=== PATIENT | female | born 1935 | race Caucasian/White ===

== ENCOUNTER 2018-05-19 08:25 | Inpatient (IN) | payer MEDICARE, OTHER ==
[~2018-05-19] VITALS: Ht 160 cm; Wt 69.9 kg
[2018-05-19] VITALS (18 sets, daily range): BP systolic 93–143; BP diastolic 43–79
[~2018-05-19 08:25] MED LIST: ASPI-1264 PO; ATEN50TA23 PO; CALC-854 PO; DOCUMENT DATE & TIME OF BETA-BLOCKER PO ONE; FISH1CAP15 PO; LACT1CAP65 PO; MULT-1085 PO; SIMV20TA5 PO; VITAMIN B-3 PO; ceFOXitin 2 GM ADDvantage bag 100 ML IV ONE; famotidine 20mg tablet PO ONE; ringers solution, lacted 1,000 ML IV SCH
[2018-05-19 10:19] LABS: BASOPHILS % (AUTO) 0.3 % (0-1); EOSINOPHILS # (AUTO) 0.1 X10'3 (0-0.9); EOSINOPHILS % (AUTO) 1.1 % (0-6); LYMPHOCYTES # (AUTO) 1.2 X10'3 (1.1-4.8); LYMPHOCYTES % (AUTO) 22.8 % (21-51); MEAN CORPUSCULAR HEMOGLOBIN 31.5 PG (27.0-31.0); MEAN CORPUSCULAR HGB CONC 33.1 % (33.0-36.5); MEAN CORPUSCULAR VOLUME 95.1 FL (78-98); MEAN PLATELET VOLUME 9.6 FL (7.4-10.4); MONOCYTES # (AUTO) 0.5 X10'3 (0-0.9); MONOCYTES % (AUTO) 8.9 % (2-12); NEUTROPHILS # (AUTO) 3.6 X10'3 (1.8-7.7); NEUTROPHILS % (AUTO) 66.9 % (42-75); PRE OP HEMATOCRIT 44.9 % (35.0-45.0); PRE OP HEMOGLOBIN 14.9 g/dL (12.0-16.0); PRE OP PLATELET COUNT 188 X10'3 (140-440); RED BLOOD COUNT 4.72 X10'6 (4.20-5.60); RED CELL DISTRIBUTION WIDTH 14.4 % (11.5-14.5)
[2018-05-19 11:03] LABS: PRE OP PROTIME 10.5 SECONDS (9.0-12.0)
[2018-05-19 11:07] LABS: ALANINE AMINOTRANSFERASE 21 U/L (12-78); ALBUMIN 3.5 G/DL (3.4-5.0); ALKALINE PHOSPHATASE 73 IU/L (46-116); ANION GAP 8 (8-16); ASPARTATE AMINO TRANSFERASE 26 U/L (10-37); BILIRUBIN,TOTAL 0.4 MG/DL (0.1-1.0); BLOOD UREA NITROGEN 9 MG/DL (7-18); BUN/CREATININE RATIO 11.3 (6.6-38.0); CALCIUM 8.6 MG/DL (8.5-10.1); CHLORIDE 105 MMOL/L (99-107); GLUCOSE 103 MG/DL (70-104); POTASSIUM 4.5 MMOL/L (3.5-5.1); SODIUM 141 MMOL/L (135-145); TOTAL CARBON DIOXIDE 28.4 MMOL/L (24-32); eGFR 69 ML/MIN
[2018-05-19] MEDS ORDERED: ringers solution, lacted 1,000 ML IV SCH (12:09)
[2018-05-19] MEDS ORDERED: morphine 4 MG/ML inj SYRINge IV PRN ×2 (12:10)
[2018-05-19] MEDS ORDERED: meperidine/PF 25mg/ml syringe IV PRN ×3 (12:10)
[2018-05-19] MEDS ORDERED: proCHLORperazine 10 MG/2 ml inj IV PRN (12:10)
[2018-05-19] MEDS ORDERED: ondansetron/PF 4mg/2ml inj IV PRN (12:10)
[2018-05-19] MEDS ORDERED: sevoflurane 250ml liquid IH ONE (12:11)
[2018-05-19] MEDS ORDERED: midazolam 2 mg/2 ml injection ONE (12:16)
[2018-05-19] MEDS ORDERED: fentaNYL /PF 50mcg/ml 5ml ampule ONE (12:16)
[2018-05-19] MEDS ORDERED: propofol inj 20 ML IV ONE (12:16)
[2018-05-19] MEDS ORDERED: rocuronium 10mg/ml inj IV ONE (12:17)
[2018-05-19] MEDS ORDERED: BUPIVAcaine/PF 2.5mg/ml (0.25%) 10ml vial ONE (12:32)
[2018-05-19] MEDS ORDERED: morphine 4 MG/ML inj SYRINge ONE (15:36)
[2018-05-19] MEDS: normal saline 1000ml 1,000 ML IV SCH (16:30)
[2018-05-19] MEDS: atorvastatin 10mg tablet PO SCH (20:54)
[2018-05-19] MEDS: HYDROcodone/acetaminophen 10/325mg tab PO PRN (20:56)
[2018-05-20] VITALS: BP 154/54
[2018-05-20] MEDS: normal saline 1000ml 1,000 ML IV SCH ×3 (02:04→21:57)
[2018-05-20] MEDS: HYDROcodone/acetaminophen 10/325mg tab PO PRN ×3 (07:01→21:57)
[2018-05-20 07:32] VITALS: BP 127/69
[2018-05-20] MEDS ORDERED: DHA PO SCH (08:00)
[2018-05-20] MEDS ORDERED: VITAMIN B3 PO SCH (08:00)
[2018-05-20] MEDS ORDERED: FISH OIL PO SCH (08:00)
[2018-05-20] MEDS ORDERED: EPA PO SCH (08:00)
[2018-05-20] MEDS: atenolol 50mg tablet PO SCH (09:20)
[2018-05-20] MEDS: multivitamins, therapeutics tablet PO SCH (09:20)
[2018-05-20] MEDS: calcium carbonate/vitamin D3 tablet PO SCH (09:20)
[2018-05-20] MEDS: lactobacillus rhamnosus 10,000 MMU CELLS/CAPSULE PO SCH (09:21)
[2018-05-20] MEDS: aspirin 325mg tablet PO SCH (09:22)
[2018-05-20 11:06] VITALS: BP 125/61
[2018-05-20 13:00] VITALS: BP 124/54
[2018-05-20 20:00] VITALS: BP 127/52
[2018-05-20] MEDS: atorvastatin 10mg tablet PO SCH (21:57)
[2018-05-21] VITALS: BP 143/61
[2018-05-21 07:14] VITALS: BP 161/59
[2018-05-21] MEDS: lactobacillus rhamnosus 10,000 MMU CELLS/CAPSULE PO SCH (07:50)
[2018-05-21] MEDS: normal saline 1000ml 1,000 ML IV SCH (07:50)
[2018-05-21] MEDS: atenolol 50mg tablet PO SCH (07:51)
[2018-05-21] MEDS: multivitamins, therapeutics tablet PO SCH (07:54)
[2018-05-21] MEDS: aspirin 325mg tablet PO SCH (07:54)
[2018-05-21] MEDS: calcium carbonate/vitamin D3 tablet PO SCH (07:54)
[2018-05-21] MEDS: HYDROcodone/acetaminophen 10/325mg tab PO PRN ×2 (08:01→19:59)
[2018-05-21 11:29] VITALS: BP 141/50
[2018-05-21] MEDS: atorvastatin 10mg tablet PO SCH (19:58)
[2018-05-21 20:00] VITALS: BP 149/63
[2018-05-21] MEDS: ondansetron/PF 4mg/2ml inj IV PRN (20:01)
[2018-05-22] VITALS: BP_SYST 150; BP_SYST 153; BP_DIAS 66; BP_DIAS 75
[2018-05-22] MEDS ORDERED: albumin (Human) 5% 250 ML IV solution IV STA (06:21)
[2018-05-22 07:00] LABS: BASOPHILS % (AUTO) 0.1 % (0-1); EOSINOPHILS # (AUTO) 0.2 X10'3 (0-0.9); EOSINOPHILS % (AUTO) 2.1 % (0-6); HEMATOCRIT 29.7 % (35.0-45.0); HEMOGLOBIN 9.8 g/dl (12.0-16.0); LYMPHOCYTES # (AUTO) 1.1 X10'3 (1.1-4.8); MEAN CORPUSCULAR HEMOGLOBIN 31.5 PG (27.0-31.0); MEAN CORPUSCULAR VOLUME 95.2 FL (78-98); MEAN PLATELET VOLUME 9.3 FL (7.4-10.4); MONOCYTES # (AUTO) 0.6 X10'3 (0-0.9); MONOCYTES % (AUTO) 6.6 % (2-12); NEUTROPHILS # (AUTO) 7.4 X10'3 (1.8-7.7); NEUTROPHILS % (AUTO) 79.2 % (42-75); PLATELET COUNT 152 X10'3 (140-440); RED BLOOD COUNT 3.12 X10'6 (4.20-5.60); RED CELL DISTRIBUTION WIDTH 14.6 % (11.5-14.5); WHITE BLOOD COUNT 9.3 X10'3 (4.5-11.0)
[2018-05-22] MEDS: atenolol 50mg tablet PO SCH (07:10)
[2018-05-22] MEDS: lactobacillus rhamnosus 10,000 MMU CELLS/CAPSULE PO SCH (07:10)
[2018-05-22] MEDS: aspirin 325mg tablet PO SCH (07:10)
[2018-05-22] MEDS: calcium carbonate/vitamin D3 tablet PO SCH (07:15)
[2018-05-22] MEDS: multivitamins, therapeutics tablet PO SCH (07:15)
[2018-05-22 07:26] LABS: ALBUMIN 2.3 G/DL (3.4-5.0); ANION GAP 7 (8-16); BLOOD UREA NITROGEN 7 MG/DL (7-18); CHLORIDE 106 MMOL/L (99-107); CREATININE 0.87 MG/DL (0.40-0.90); GLUCOSE 97 MG/DL (70-104); POTASSIUM 4.1 MMOL/L (3.5-5.1); SODIUM 138 MMOL/L (135-145); TOTAL CARBON DIOXIDE 25.4 MMOL/L (24-32); eGFR 63 ML/MIN
[2018-05-22 07:28] VITALS: BP 150/71
[2018-05-22] MEDS: dextrose 5%-normal saline 1,000 ML IV SCH ×2 (10:54→23:26)
[2018-05-22] MEDS: enoxaparin 40mg/0.4ml syringe SUBCUT SCH (10:55)
[2018-05-22] MEDS ORDERED: metoclopramide 5 mg/ml inj IV PRN (11:05)
[2018-05-22 12:08] VITALS: BP 138/51
[2018-05-22] MEDS: metoclopramide 5 mg/ml inj IV SCH ×2 (14:26→19:38)
[2018-05-22] MEDS ORDERED: albuterol 2.5 MG/3 ML nebule ONE (15:35)
[2018-05-22] MEDS: albuterol 2.5 MG/3 ML nebule NEB PRN (18:00)
[2018-05-22 19:00] VITALS: BP 157/61
[2018-05-22] MEDS: atorvastatin 10mg tablet PO SCH (19:40)
[2018-05-23 00:15] VITALS: BP 153/66
[2018-05-23] MEDS: metoclopramide 5 mg/ml inj IV SCH ×4 (02:38→20:53)
[2018-05-23] MEDS: HYDROcodone/acetaminophen 10/325mg tab PO PRN ×2 (02:46→19:16)
[2018-05-23] MEDS: albuterol 2.5 MG/3 ML nebule NEB PRN ×2 (03:08→08:23)
[2018-05-23] MEDS: enoxaparin 40mg/0.4ml syringe SUBCUT SCH (07:18)
[2018-05-23] MEDS: aspirin 325mg tablet PO SCH (07:18)
[2018-05-23] MEDS: lactobacillus rhamnosus 10,000 MMU CELLS/CAPSULE PO SCH (07:18)
[2018-05-23] MEDS: atenolol 50mg tablet PO SCH (07:19)
[2018-05-23] MEDS: multivitamins, therapeutics tablet PO SCH (07:19)
[2018-05-23] MEDS: calcium carbonate/vitamin D3 tablet PO SCH (07:19)
[2018-05-23 07:59] VITALS: BP 133/62
[2018-05-23 11:00] VITALS: BP 110/59
[2018-05-23] MEDS: dextrose 5%-normal saline 1,000 ML IV SCH ×2 (12:07→23:40)
[2018-05-23 18:30] VITALS: BP 160/70
[2018-05-23] MEDS: atorvastatin 10mg tablet PO SCH (20:54)
[2018-05-23 23:00] VITALS: BP 148/62
[2018-05-24] MEDS: metoclopramide 5 mg/ml inj IV SCH ×3 (01:54→13:46)
[2018-05-24 05:43] LABS: BASOPHILS % (AUTO) 0.2 % (0-1); EOSINOPHILS # (AUTO) 0.2 X10'3 (0-0.9); EOSINOPHILS % (AUTO) 3.2 % (0-6); HEMATOCRIT 26.3 % (35.0-45.0); LYMPHOCYTES # (AUTO) 0.9 X10'3 (1.1-4.8); LYMPHOCYTES % (AUTO) 15.2 % (21-51); MEAN CORPUSCULAR HEMOGLOBIN 32.3 PG (27.0-31.0); MEAN CORPUSCULAR HGB CONC 34.3 % (33.0-36.5); MEAN CORPUSCULAR VOLUME 94.2 FL (78-98); MEAN PLATELET VOLUME 8.4 FL (7.4-10.4); MONOCYTES # (AUTO) 0.7 X10'3 (0-0.9); MONOCYTES % (AUTO) 11.2 % (2-12); NEUTROPHILS # (AUTO) 4.3 X10'3 (1.8-7.7); NEUTROPHILS % (AUTO) 70.2 % (42-75); PLATELET COUNT 177 X10'3 (140-440); RED CELL DISTRIBUTION WIDTH 14.4 % (11.5-14.5); WHITE BLOOD COUNT 6.2 X10'3 (4.5-11.0)
[2018-05-24 05:58] LABS: ALBUMIN 2.2 G/DL (3.4-5.0); ANION GAP 8 (8-16); BLOOD UREA NITROGEN 3 MG/DL (7-18); BUN/CREATININE RATIO 4.3 (6.6-38.0); CALCIUM 7.5 MG/DL (8.5-10.1); CHLORIDE 106 MMOL/L (99-107); CREATININE 0.69 MG/DL (0.40-0.90); GLUCOSE 173 MG/DL (70-104); POTASSIUM 3.1 MMOL/L (3.5-5.1); SODIUM 142 MMOL/L (135-145); TOTAL CARBON DIOXIDE 28.3 MMOL/L (24-32); eGFR 82 ML/MIN
[2018-05-24 07:29] VITALS: BP 155/72
[2018-05-24] MEDS: aspirin 325mg tablet PO SCH (07:38)
[2018-05-24] MEDS: lactobacillus rhamnosus 10,000 MMU CELLS/CAPSULE PO SCH (07:39)
[2018-05-24] MEDS: calcium carbonate/vitamin D3 tablet PO SCH (07:39)
[2018-05-24] MEDS: atenolol 50mg tablet PO SCH (07:39)
[2018-05-24] MEDS: multivitamins, therapeutics tablet PO SCH (07:40)
[2018-05-24] MEDS: enoxaparin 40mg/0.4ml syringe SUBCUT SCH (07:40)
[2018-05-24] MEDS: dextrose 5%-normal saline 1,000 ML IV SCH (11:03)
[2018-05-24 11:10] VITALS: BP 166/80
[2018-05-24] MEDS ORDERED: NUT.TX.IMPAIRED DIGEST FXN (Ensure Clear) 237 ML PO SCH (13:00)
[2018-05-24] MEDS ORDERED: potassium Cl 40MEQ/NS 500ml 500 ML IV PRN ×2 (18:35)
[2018-05-24] MEDS ORDERED: potassium Cl 20 mEq SR tablet PO PRN (18:35)
[2018-05-24 20:00] VITALS: BP 162/66
[2018-05-24] MEDS: atorvastatin 10mg tablet PO SCH (20:33)
[2018-05-24] MEDS: potassium Cl 20 mEq SR tablet PO PRN (20:34)
[2018-05-24] MEDS: HYDROcodone/acetaminophen 10/325mg tab PO PRN (20:35)
[2018-05-25] VITALS: BP 145/59
[2018-05-25 05:23] LABS: BASOPHILS % (AUTO) 0.6 % (0-1); EOSINOPHILS # (AUTO) 0.1 X10'3 (0-0.9); EOSINOPHILS % (AUTO) 1.2 % (0-6); HEMATOCRIT 26.3 % (35.0-45.0); HEMOGLOBIN 8.9 g/dl (12.0-16.0); LYMPHOCYTES # (AUTO) 1.5 X10'3 (1.1-4.8); LYMPHOCYTES % (AUTO) 21.7 % (21-51); MEAN CORPUSCULAR HEMOGLOBIN 31.6 PG (27.0-31.0); MEAN CORPUSCULAR HGB CONC 33.8 % (33.0-36.5); MEAN CORPUSCULAR VOLUME 93.5 FL (78-98); MEAN PLATELET VOLUME 8.7 FL (7.4-10.4); MONOCYTES # (AUTO) 0.6 X10'3 (0-0.9); MONOCYTES % (AUTO) 8.5 % (2-12); NEUTROPHILS # (AUTO) 4.8 X10'3 (1.8-7.7); PLATELET COUNT 195 X10'3 (140-440); RED BLOOD COUNT 2.81 X10'6 (4.20-5.60); WHITE BLOOD COUNT 7.1 X10'3 (4.5-11.0)
[2018-05-25 05:35] LABS: ALBUMIN 2.1 G/DL (3.4-5.0); ANION GAP 6 (8-16); BLOOD UREA NITROGEN 4 MG/DL (7-18); BUN/CREATININE RATIO 6.6 (6.6-38.0); CALCIUM 7.9 MG/DL (8.5-10.1); CHLORIDE 104 MMOL/L (99-107); CREATININE 0.61 MG/DL (0.40-0.90); GLUCOSE 92 MG/DL (70-104); POTASSIUM 3.1 MMOL/L (3.5-5.1); SODIUM 140 MMOL/L (135-145); TOTAL CARBON DIOXIDE 29.9 MMOL/L (24-32); eGFR > 90 ML/MIN
[2018-05-25 07:08] VITALS: BP 174/69
[2018-05-25] MEDS: atenolol 50mg tablet PO SCH (07:17)
[2018-05-25] MEDS: aspirin 325mg tablet PO SCH (07:17)
[2018-05-25] MEDS: lactobacillus rhamnosus 10,000 MMU CELLS/CAPSULE PO SCH (07:17)
[2018-05-25] MEDS: multivitamins, therapeutics tablet PO SCH (07:18)
[2018-05-25] MEDS: enoxaparin 40mg/0.4ml syringe SUBCUT SCH (07:18)
[2018-05-25] MEDS: calcium carbonate/vitamin D3 tablet PO SCH (07:19)
[2018-05-25] MEDS: potassium Cl 20 mEq SR tablet PO PRN (08:04)
[2018-05-25] MEDS: potassium Cl oral solution 20 MEQ/15 ML PO SCH ×3 (09:02→21:32)
[2018-05-25 13:00] VITALS: BP 162/79
[2018-05-25] MEDS: lactose-reduced food (Ensure High Protein) 237ml bottle PO SCH ×2 (13:00→18:32)
[2018-05-25] MEDS ORDERED: potassium Cl oral solution 20 MEQ/15 ML PO PRN ×2 (16:13→16:14)
[2018-05-25 19:00] VITALS: BP 166/94
[2018-05-25] MEDS: atorvastatin 10mg tablet PO SCH (21:31)
[2018-05-25 23:00] VITALS: BP 167/73
[2018-05-26] MEDS: ondansetron/PF 4mg/2ml inj IV PRN (05:52)
[2018-05-26 07:00] VITALS: BP 167/72
[2018-05-26] MEDS: aspirin 325mg tablet PO SCH (08:00)
[2018-05-26] MEDS: atenolol 50mg tablet PO SCH (08:00)
[2018-05-26] MEDS: lactobacillus rhamnosus 10,000 MMU CELLS/CAPSULE PO SCH (08:00)
[2018-05-26] MEDS: lactose-reduced food (Ensure High Protein) 237ml bottle PO SCH ×3 (08:00→18:31)
[2018-05-26] MEDS: multivitamins, therapeutics tablet PO SCH (08:00)
[2018-05-26] MEDS: calcium carbonate/vitamin D3 tablet PO SCH (08:00)
[2018-05-26 09:28] VITALS: BP 157/65
[2018-05-26] MEDS: normal saline 1000ml 1,000 ML IV SCH (11:34)
[2018-05-26 12:00] VITALS: BP 125/80
[2018-05-26] MEDS ORDERED: LIDOcaine 1% 30ml vial 5 ML in potassium Cl 40MEQ/NS 500ml 500 ML IV ONE (12:50)
[2018-05-26] MEDS: NUT.TX.IMPAIRED DIGEST FXN (Ensure Clear) 237 ML PO SCH ×2 (13:08→18:31)
[2018-05-26 20:00] VITALS: BP 179/80
[2018-05-26] MEDS: atorvastatin 10mg tablet PO SCH (20:49)
[2018-05-26] MEDS ORDERED: atenolol 50mg tablet PO ONE (21:00)
[2018-05-26] MEDS ORDERED: HYDROcodone/acetaminophen 5mg/325mg tablet PO PRN (21:00)
[2018-05-26] MEDS ORDERED: normal saline 1000ml 1,000 ML IV SCH (21:00)
[2018-05-26] MEDS ORDERED: HYDROcodone/acetaminophen 10/325mg tab PO PRN (21:05)
[2018-05-27] VITALS: BP 173/77
[2018-05-27] MEDS: normal saline 1000ml 1,000 ML IV SCH (04:00)
[2018-05-27] MEDS ORDERED: ceFAZolin 1GM/D5W- ADD-VANTAGE 50 ML IV SCH (04:00)
[2018-05-27 06:59] VITALS: BP 146/71
[2018-05-27] MEDS: calcium carbonate/vitamin D3 tablet PO SCH ×2 (08:00→08:14)
[2018-05-27] MEDS: lactose-reduced food (Ensure High Protein) 237ml bottle PO SCH ×2 (08:00→13:00)
[2018-05-27] MEDS: aspirin 325mg tablet PO SCH (08:14)
[2018-05-27] MEDS: multivitamins, therapeutics tablet PO SCH (08:14)
[2018-05-27] MEDS: lactobacillus rhamnosus 10,000 MMU CELLS/CAPSULE PO SCH (08:14)
[2018-05-27] MEDS: atenolol 50mg tablet PO SCH (08:14)
[2018-05-27] MEDS: NUT.TX.IMPAIRED DIGEST FXN (Ensure Clear) 237 ML PO SCH ×2 (08:18→13:29)
[2018-05-27 12:01] VITALS: BP 168/69
== END 2018-05-27 14:05 | disposition home or self-care (01) | DRG 330 ==
LOC: PAS IN 08:25 → EDSTATUS 10:00 → SUR 3N 14:48 → PAS IN 15:01 → SUR 3N 16:23
PROVIDERS: ADMIT Surgery; ATTEND Surgery
PROC: 3E0T3BZ Introduction of Anesthetic Agent into Peripheral Nerves and Plexi, Percutaneous Approach (ICD-10-PCS; 2018-05-19)
PROC: 0DBL4ZZ Excision of Transverse Colon, Percutaneous Endoscopic Approach (ICD-10-PCS; principal; 2018-05-19 12:11)
DX: C18.4 Malignant neoplasm of transverse colon (principal); K56.7 Ileus, unspecified; C18.5 Malignant neoplasm of splenic flexure; K62.5 Hemorrhage of anus and rectum; M81.0 Age-related osteoporosis without current pathological fracture; D64.9 Anemia, unspecified; M54.9 Dorsalgia, unspecified; Z96.659 Presence of unspecified artificial knee joint; E78.5 Hyperlipidemia, unspecified; I10 Essential (primary) hypertension; J44.9 Chronic obstructive pulmonary disease, unspecified; Z79.899 Other long term (current) drug therapy; Z79.82 Long term (current) use of aspirin; Z88.1 Allergy status to other antibiotic agents; Z88.0 Allergy status to penicillin; Z88.2 Allergy status to sulfonamides; Z85.3 Personal history of malignant neoplasm of breast; Z86.73 Personal history of transient ischemic attack (TIA), and cerebral infarction without residual deficits
CPT/HCPCS: 36415; 71045; 80048; 80053; 84132; 85025; 85610; 85730; 86885; 86900; 86901; 86920; 87070; 88309; 93005; 94640; 94760; 97116; 97162; 97530; A6257; A7000; C1758; J0694; J1650; J2250; J2270; J2405; J2704; J2765; J3010; J3480; J3490; J7030; J7042; J7120; P9045

== ENCOUNTER 2021-06-19 12:59 | Outpatient (CLI) | payer MEDICARE, OTHER ==
[~2021-06-19 12:59] MED LIST changes: -DOCUMENT DATE & TIME OF BETA-BLOCKER PO ONE; +SIMV-42 PO; -SIMV20TA5 PO; -ceFOXitin 2 GM ADDvantage bag 100 ML IV ONE; -famotidine 20mg tablet PO ONE; -ringers solution, lacted 1,000 ML IV SCH
== END 2021-06-19 23:59 | disposition home or self-care (01) ==
LOC: RAD 12:59
PROVIDERS: ATTEND Family Medicine
DX: R13.12 Dysphagia, oropharyngeal phase (principal); I69.391 Dysphagia following cerebral infarction; I69.322 Dysarthria following cerebral infarction
CPT/HCPCS: 74230